=== PATIENT | male | born 2000 | race Caucasian/White ===

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

== ENCOUNTER 2022-07-14 07:53 | Emergency (ER) | payer SELFPAY ==
[~2022-07-14] VITALS: Ht 177.8 cm; Wt 83.9 kg
[2022-07-14 08:11] VITALS: BP 106/66
--- NOTE | 2022-07-14 08:22 | NUR ---
22/M WALKED IN C/O LEFT LEG PAIN S/P FALL YESTERDAY AT WORK. DENIES HEAD TRAUMA OR LOC. NO OPEN WOUND. AAO4, AMBULATORY, VITALS STABLE. NO ACUTE DISTRESS NOTED. PMH: DENIES
[2022-07-14 10:30] VITALS: BP 113/63
[2022-07-14] MEDS ORDERED: NAPR-54 PO (11:01)
--- NOTE | 2022-07-14 11:06 | NUR ---
PT WAS GIVEN CRUTCHES THAT WERE ADJUSTED TO PT'S SIZE AND HEIGHT. PT SHOWED PROPER DEMONSTRATION ON HOW TO USE THEM AND HAD NO FURTHER QUESTIONS.
== END 2022-07-14 11:10 | disposition home or self-care (01) ==
LOC: MED 07:53
DX: S93.402A Sprain of unspecified ligament of left ankle, initial encounter (principal); X58.XXXA Exposure to other specified factors, initial encounter; Y93.89 Activity, other specified; Y92.89 Other specified places as the place of occurrence of the external cause; Y99.8 Other external cause status
CPT/HCPCS: 73562; 73610; 99284; Q0092

== ENCOUNTER 2023-01-26 12:00 | Emergency (ER) | payer SELFPAY ==
[~2023-01-26] VITALS: Ht 170.2 cm; Wt 102.1 kg
[~2023-01-26 12:00] MED LIST changes: +NAPR-54 PO
[2023-01-26 12:29] VITALS: BP 151/64; PULSE 71; RESP 20; TEMP 98; O2SAT 99
[2023-01-26] MEDS ORDERED: PHEN177S23 PO (13:38)
[2023-01-26] MEDS ORDERED: IBUP-2213 PO (13:38)
--- NOTE | 2023-01-26 13:43 | NUR ---
Patient discharged with v/s stable. Written and verbal after care instructions given and explained. Patient alert, oriented and verbalized understanding of instructions. Ambulatory with steady gait. All questions addressed prior to discharge. ID band removed. Patient advised to follow up with PMD. Rx of IBUPROFEN, PHENOL given. Patient educated on indication of medication including possible reaction and side effects. Opportunity to ask questions provided and answered.
== END 2023-01-26 13:42 | disposition home or self-care (01) ==
LOC: MED 12:00
DX: B34.9 Viral infection, unspecified (principal); Z20.822 Contact with and (suspected) exposure to COVID-19; J45.909 Unspecified asthma, uncomplicated; Z79.899 Other long term (current) drug therapy
CPT/HCPCS: 99283